=== PATIENT | female | born 1980 | race Hispanic/Latino ===

== ENCOUNTER 2022-04-01 18:53 | Emergency (ER) | payer OTHER ==
[~2022-04-01] VITALS: Ht 157.5 cm; Wt 93.2 kg
[2022-04-01] VITALS (12 sets, daily range): BP systolic 85–141; BP diastolic 36–77
[~2022-04-01 18:53] MED LIST: AMOXICILLIN500 MG OR; AMOXICILLIN875 MG PO; KURIC2 % EX; NAPROSYN500 MG PO; NO MEDS; PROTONIX40 MG PO; VITAMIN B-12500 MCG PO
== END 2022-04-01 23:10 | disposition home or self-care (01) | DRG 605 ==
LOC: ED 18:53
DX: S80.12XA Contusion of left lower leg, initial encounter (principal); S40.021A Contusion of right upper arm, initial encounter; V43.52XA Car driver injured in collision with other type car in traffic accident, initial encounter